=== PATIENT | female | born 1965 | race Caucasian/White ===

== ENCOUNTER 2020-04-11 09:15 | Inpatient (IN) | payer MEDICAID ==
[2020-04-11] VITALS (8 sets, daily range): BP systolic 111–169; BP diastolic 49–99
[~2020-04-11] VITALS: Ht 170.2 cm; Wt 105.8 kg
[2020-04-11] MEDS ORDERED: dexamethasone sod phosphate 10mg/ml inj IV STA (09:20)
[2020-04-11] MEDS ORDERED: diphenhydrAMINE 50 mg/ml inj IV ONE (09:20)
[2020-04-11] MEDS ORDERED: famotidine/PF 10 mg/ml inj IV ONE (09:20)
--- NOTE | 2020-04-11 09:33 | NUR ---
[facility] ([facility]) [phone]
[2020-04-11] MEDS ORDERED: TRANEXAMIC ACID 1 GM IN NACL,ISO-OS 100 ML IV ONE (09:40)
[2020-04-11] MEDS ORDERED: epiNEPHrine 1 mg/ml inj SQ ONE (09:50)
--- NOTE | 2020-04-11 09:50 | NUR ---
pt states swelling is getting worse in her throat. redness moving down neck. Dr. Herrmann udpated.
--- NOTE | 2020-04-11 10:06 | NUR ---
Pt states slight improvement of symptoms
--- NOTE | 2020-04-11 10:06 | NUR ---
Pt moved to bed 5
[2020-04-11] MEDS ORDERED: epiNEPHrine 1 mg/ml inj SQ PRN (10:20)
--- NOTE | 2020-04-11 10:50 | NUR ---
Pt states slight improvement of symptoms. Awaiting FFP. Will continue to monitor closely.
--- NOTE | 2020-04-11 11:17 | NUR ---
FFP initiated. Verified by 2 RNs.
--- NOTE | 2020-04-11 11:25 | NUR ---
swelling of tongue decreasing, redness around neck and upper chest beginning to decrease, pt states it is easier to breath. Will continue to monitor.
[2020-04-11] MEDS ORDERED: ketorolac trometh. 30mg/ml inj. IV ONE (13:15)
[2020-04-11] MEDS ORDERED: ketorolac tromethamine 15mg/ml inj. IV ONE (13:15)
[2020-04-11] MEDS ORDERED: acetaminophen 325mg tablet PO ONE (14:05)
[2020-04-11] MEDS ORDERED: LISI-600 PO (14:30)
[2020-04-11] MEDS ORDERED: METF500T PO (14:30)
[2020-04-11] MEDS ORDERED: SIMV10TA98 PO (14:30)
[2020-04-11] MEDS ORDERED: AMLO-94 PO (14:30)
[2020-04-11] MEDS ORDERED: LORA2TAB96 PO (14:30)
[2020-04-11] MEDS ORDERED: ipratropium/albuterol 3ml nebule NEB PRN (14:55)
[2020-04-11] MEDS ORDERED: magnesium 4gm in 100ml NS 100 ML IV PRN (14:55)
[2020-04-11] MEDS ORDERED: magnesium Cl slow-release 64mg tablet PO PRN (14:55)
[2020-04-11] MEDS ORDERED: niCARdipine I.V. 50 MG in normal saline 250ml IV soln 230 ML IV SCH (14:55)
[2020-04-11] MEDS ORDERED: acetaminophen 650mg rectal suppository RC PRN (14:55)
[2020-04-11] MEDS ORDERED: potassium Cl 20 mEq SR tablet PO PRN ×2 (14:55)
[2020-04-11] MEDS ORDERED: normal saline 1000ml 1,000 ML IV SCH (14:55)
[2020-04-11] MEDS ORDERED: magnesium 2GM in 50ml NS 50 ML IV PRN (14:55)
[2020-04-11] MEDS ORDERED: sodium phosphate inj. 15 MMOL in dextrose 5%-water 250 ML IV PRN (14:55)
[2020-04-11] MEDS ORDERED: Neutra Phos packet PO PRN (14:55)
[2020-04-11] MEDS ORDERED: sodium phosphate inj. 30 MMOL in dextrose 5%-water 250 ML IV PRN (14:55)
[2020-04-11] MEDS ORDERED: ondansetron/PF 4mg/2ml inj IV PRN (14:55)
[2020-04-11] MEDS ORDERED: AMLO10TA13 PO (14:58)
[2020-04-11] MEDS ORDERED: LORA-268 PO (14:58)
[2020-04-11] MEDS ORDERED: CYCL5TAB79 PO (14:58)
[2020-04-11] MEDS ORDERED: diphenhydrAMINE 50 mg/ml inj IV PRN (15:00)
[2020-04-11 15:24] LABS: BASOPHILS % (AUTO) 0.2 % (0-1); EOSINOPHILS % (AUTO) 0.1 % (0-6); HEMATOCRIT 40.5 % (35.0-45.0); HEMOGLOBIN 13.5 g/dl (12.0-16.0); LYMPHOCYTES # (AUTO) 0.6 X10'3 (1.1-4.8); LYMPHOCYTES % (AUTO) 5.4 % (21-51); MEAN CORPUSCULAR HEMOGLOBIN 27.7 PG (27.0-31.0); MEAN CORPUSCULAR HGB CONC 33.3 g/dL (33.0-36.5); MEAN CORPUSCULAR VOLUME 83.2 FL (78-98); MEAN PLATELET VOLUME 8.8 FL (7.4-10.4); MONOCYTES # (AUTO) 0.1 X10'3 (0-0.9); MONOCYTES % (AUTO) 0.5 % (2-12); NEUTROPHILS # (AUTO) 9.8 X10'3 (1.8-7.7); NEUTROPHILS % (AUTO) 93.8 % (42-75); PLATELET COUNT 249 X10'3 (140-440); RED BLOOD COUNT 4.87 X10'6 (4.20-5.60); RED CELL DISTRIBUTION WIDTH 13.4 % (11.5-14.5); WHITE BLOOD COUNT 10.5 X10'3 (4.5-11.0)
[2020-04-11 15:39] LABS: PARTIAL THROMBOPLASTIN TIME 24 SECONDS (22-32)
[2020-04-11 15:46] LABS: ALANINE AMINOTRANSFERASE 30 U/L (12-78); ALBUMIN 4.1 G/DL (3.4-5.0); ALBUMIN/GLOBULIN RATIO 1.1 (1.1-1.5); ALKALINE PHOSPHATASE 62 IU/L (46-116); ANION GAP 9 (8-16); ASPARTATE AMINO TRANSFERASE 20 U/L (10-37); BILIRUBIN,TOTAL 0.3 MG/DL (0.1-1.0); BLOOD UREA NITROGEN 16 MG/DL (7-18); BUN/CREATININE RATIO 21.3 (6.6-38.0); CALCIUM 9.2 MG/DL (8.5-10.1); CHLORIDE 103 MMOL/L (99-107); CREATININE 0.75 MG/DL (0.40-0.90); GLUCOSE 202 MG/DL (70-104); PHOSPHORUS 3.1 MG/DL (2.3-4.5); POTASSIUM 3.8 MMOL/L (3.5-5.1); SODIUM 140 MMOL/L (135-145); TOTAL CARBON DIOXIDE 27.9 MMOL/L (24-32); TOTAL PROTEIN 7.9 G/DL (6.4-8.2); eGFR 80 ML/MIN
--- NOTE | 2020-04-11 16:00 | NUR ---
received from er by brisa to room 2011. walked to bed. neuros intact- face flushed. no edema noted on face or tongue.
[2020-04-11] MEDS: niCARDipine-NS 40mg/200ml IVPB 200 ML IV SCH ×2 (16:56→21:39)
--- NOTE | 2020-04-11 17:00 | NUR ---
ns and cardene gtt started. small amts of ice chips, no difficulty in swallowing.
--- NOTE | 2020-04-11 17:45 | NUR ---
dr mckeon called to request home med flexeril for neck and back pain- still no food for now r/t concern for potential in difficulty swallowing. cardene increased to keep sbp less than 140
[2020-04-11] MEDS ORDERED: cyclobenzaprine 10mg tablet PO PRN (17:55)
[2020-04-11] MEDS: heparin, porcine 5000 units/ml vial SQ SCH (20:00)
[2020-04-11 20:05] LABS: ALANINE AMINOTRANSFERASE 26 U/L (12-78); ALBUMIN 4.1 G/DL (3.4-5.0); ALBUMIN/GLOBULIN RATIO 1.1 (1.1-1.5); ALKALINE PHOSPHATASE 64 IU/L (46-116); ANION GAP 9 (8-16); ASPARTATE AMINO TRANSFERASE 15 U/L (10-37); BILIRUBIN,TOTAL 0.3 MG/DL (0.1-1.0); BLOOD UREA NITROGEN 16 MG/DL (7-18); CALCIUM 9.6 MG/DL (8.5-10.1); CHLORIDE 104 MMOL/L (99-107); GLUCOSE 219 MG/DL (70-104); SODIUM 140 MMOL/L (135-145); TOTAL CARBON DIOXIDE 27.5 MMOL/L (24-32); eGFR 74 ML/MIN
[2020-04-11] MEDS ORDERED: mag hydrox/Alum hydrox/simeth 30ml oral suspension PO ONE (22:00)
[2020-04-11] MEDS: methylPREDNISolone sod succ 125mg/2ml vial IV SCH (22:38)
[2020-04-11] MEDS: famotidine/PF 10 mg/ml inj IV SCH (22:38)
[2020-04-11 23:01] LABS: CLARITY,URINE CLEAR (Clear); COLOR,URINE YELLOW (Yellow); GLUCOSE, URINE NEGATIVE (Neg); KETONES,URINE TRACE mg/dl (Neg); LEUKOCYTE ESTERASE ,URINE NEGATIVE (Neg); NITRITES, URINE NEGATIVE (Neg); OCCULT BLOOD,URINE TRACE-INTACT (Neg); PROTEIN,URINE NEGATIVE (Neg); UROBILINOGEN,URINE 0.2 E.U/dL (0.2-1.0)
[2020-04-11 23:09] LABS: UA COLLECTION TYPE NON-SPECIFIED
[2020-04-11 23:10] LABS: BACTERIA,URINE FEW /HPF (Neg); RBC,URINE 0-2 /HPF (0-2); SQUAMOUS EPITHELIAL CELL,UR FEW /LPF (FEW); WBC,URINE NONE SEEN /HPF (0-4)
[2020-04-12] VITALS (19 sets, daily range): BP systolic 113–151; BP diastolic 61–84
[2020-04-12] MEDS: methylPREDNISolone sod succ 125mg/2ml vial IV SCH ×2 (02:00→07:15)
[2020-04-12 06:30] LABS: BASOPHILS % (AUTO) 0.1 % (0-1); EOSINOPHILS % (AUTO) 0 % (0-6); HEMATOCRIT 37.9 % (35.0-45.0); HEMOGLOBIN 13.1 g/dl (12.0-16.0); LYMPHOCYTES # (AUTO) 0.9 X10'3 (1.1-4.8); LYMPHOCYTES % (AUTO) 9.3 % (21-51); MEAN CORPUSCULAR HEMOGLOBIN 28.5 PG (27.0-31.0); MEAN CORPUSCULAR HGB CONC 34.7 g/dL (33.0-36.5); MEAN PLATELET VOLUME 8.6 FL (7.4-10.4); MONOCYTES # (AUTO) 0.1 X10'3 (0-0.9); MONOCYTES % (AUTO) 0.5 % (2-12); NEUTROPHILS # (AUTO) 8.8 X10'3 (1.8-7.7); NEUTROPHILS % (AUTO) 90.1 % (42-75); PLATELET COUNT 217 X10'3 (140-440); RED BLOOD COUNT 4.61 X10'6 (4.20-5.60); RED CELL DISTRIBUTION WIDTH 13.7 % (11.5-14.5); WHITE BLOOD COUNT 9.8 X10'3 (4.5-11.0)
[2020-04-12] MEDS: niCARDipine-NS 40mg/200ml IVPB 200 ML IV SCH (06:54)
[2020-04-12 07:03] LABS: ALANINE AMINOTRANSFERASE 25 U/L (12-78); ALBUMIN 3.8 G/DL (3.4-5.0); ALKALINE PHOSPHATASE 58 IU/L (46-116); ANION GAP 10 (8-16); ASPARTATE AMINO TRANSFERASE 10 U/L (10-37); BILIRUBIN,TOTAL 0.2 MG/DL (0.1-1.0); BLOOD UREA NITROGEN 17 MG/DL (7-18); BUN/CREATININE RATIO 29.8 (6.6-38.0); CHLORIDE 104 MMOL/L (99-107); CREATININE 0.57 MG/DL (0.40-0.90); GLUCOSE 213 MG/DL (70-104); MAGNESIUM 2.3 MG/DL (1.5-2.4); PHOSPHORUS 3.2 MG/DL (2.3-4.5); POTASSIUM 3.6 MMOL/L (3.5-5.1); SODIUM 139 MMOL/L (135-145); TOTAL CARBON DIOXIDE 25.3 MMOL/L (24-32); TOTAL PROTEIN 7.6 G/DL (6.4-8.2); eGFR > 90 ML/MIN
[2020-04-12] MEDS: famotidine/PF 10 mg/ml inj IV SCH ×2 (07:15→20:00)
[2020-04-12] MEDS: acetaminophen 325mg tablet PO PRN (07:24)
[2020-04-12] MEDS: heparin, porcine 5000 units/ml vial SQ SCH ×2 (08:00→20:00)
[2020-04-12] MEDS ORDERED: pantoprazole 40 MG vial IV SCH (08:00)
[2020-04-12] MEDS: amLODIPine 5mg tablet PO SCH (10:47)
[2020-04-12] MEDS: labetalol 100mg tablet PO SCH ×2 (10:47→20:09)
[2020-04-12] MEDS ORDERED: LORazepam 0.5 MG tablet PO PRN (11:55)
[2020-04-12] MEDS: metFORMIN 500mg tablet PO SCH (12:44)
--- NOTE | 2020-04-12 14:35 | NUR ---
DM consult: Pt with A1c 7.6%, pending transfer to the floors. Pt would benefit from DM education once stable. Addendum: 04/12/20 at [address] Amended: Links added.
--- NOTE | 2020-04-12 18:00 | NUR ---
Patient arrived on unit from CICU at approximately 1730. Oriented to room. No complaints of pain or discomfort. Will continue to monitor.
--- NOTE | 2020-04-12 18:14 | NUR ---
SBAR report to hannah cabrera, emar reviewed, questions answered at [phone].
--- NOTE | 2020-04-12 18:36 | NUR ---
Patient in room CICU 2011. I have received report from Penny WOO and had the opportunity to ask questions and assume patient care.
[2020-04-12] MEDS: famotidine 20mg tablet PO SCH (20:00)
[2020-04-12] MEDS: methylPREDNISolone sod succ/PF 40mg inj. IV SCH (20:10)
[2020-04-12] MEDS ORDERED: insulin Lispro (HumaLOG) vial - multi-dose SQ ONE (22:35)
--- NOTE | 2020-04-12 22:40 | NUR ---
Spoke with provider land leasing information clerk about higher blood sugars for patient. No DM protocol ordered. The provider wants a one time dose of Humalog to be given tonight.
[2020-04-13 02:00] VITALS: BP 113/54
--- NOTE | 2020-04-13 06:30 | NUR ---
Problems reprioritized. Patient report given, questions answered & plan of care reviewed with Zeke WOO.
[2020-04-13 06:41] LABS: BASOPHILS % (AUTO) 0 % (0-1); EOSINOPHILS % (AUTO) 0 % (0-6); HEMATOCRIT 37.4 % (35.0-45.0); HEMOGLOBIN 12.5 g/dl (12.0-16.0); LYMPHOCYTES # (AUTO) 1.1 X10'3 (1.1-4.8); LYMPHOCYTES % (AUTO) 5.9 % (21-51); MEAN CORPUSCULAR HEMOGLOBIN 27.8 PG (27.0-31.0); MEAN CORPUSCULAR HGB CONC 33.4 g/dL (33.0-36.5); MEAN CORPUSCULAR VOLUME 83.3 FL (78-98); MONOCYTES # (AUTO) 0.6 X10'3 (0-0.9); NEUTROPHILS # (AUTO) 17.5 X10'3 (1.8-7.7); NEUTROPHILS % (AUTO) 91.1 % (42-75); PLATELET COUNT 232 X10'3 (140-440); RED BLOOD COUNT 4.49 X10'6 (4.20-5.60); RED CELL DISTRIBUTION WIDTH 13.9 % (11.5-14.5); WHITE BLOOD COUNT 19.2 X10'3 (4.5-11.0)
[2020-04-13 06:46] LABS: ALANINE AMINOTRANSFERASE 23 U/L (12-78); ALBUMIN 3.5 G/DL (3.4-5.0); ALKALINE PHOSPHATASE 57 IU/L (46-116); ANION GAP 9 (8-16); ASPARTATE AMINO TRANSFERASE 10 U/L (10-37); BILIRUBIN,TOTAL 0.1 MG/DL (0.1-1.0); BLOOD UREA NITROGEN 27 MG/DL (7-18); CHLORIDE 105 MMOL/L (99-107); CREATININE 0.75 MG/DL (0.40-0.90); GLUCOSE 256 MG/DL (70-104); MAGNESIUM 2.4 MG/DL (1.5-2.4); PHOSPHORUS 3.1 MG/DL (2.3-4.5); POTASSIUM 4.1 MMOL/L (3.5-5.1); SODIUM 139 MMOL/L (135-145); TOTAL CARBON DIOXIDE 24.7 MMOL/L (24-32); eGFR 80 ML/MIN
[2020-04-13 07:00] VITALS: BP 140/72
[2020-04-13 07:44] LABS: TOTAL CELLS COUNTED 100
[2020-04-13 07:45] LABS: PLATELET ESTIMATE NORMAL
[2020-04-13] MEDS: heparin, porcine 5000 units/ml vial SQ SCH ×2 (08:00→19:40)
[2020-04-13] MEDS: labetalol 100mg tablet PO SCH ×2 (08:12→19:45)
[2020-04-13] MEDS: famotidine 20mg tablet PO SCH ×2 (08:12→19:39)
[2020-04-13] MEDS: metFORMIN 500mg tablet PO SCH (08:12)
[2020-04-13] MEDS: amLODIPine 5mg tablet PO SCH (08:13)
[2020-04-13] MEDS: methylPREDNISolone sod succ/PF 40mg inj. IV SCH (08:13)
[2020-04-13] MEDS: famotidine/PF 10 mg/ml inj IV SCH ×2 (08:13→19:39)
--- NOTE | 2020-04-13 10:13 | NUR ---
Spoke to Dr. Marsh over the phone, informed her of the need for blood sugar of 241, need for epi pen upon discharge and oral airway. Stated to give 5 units of humulog one time dose and she would talk to her about the discharge plan.
[2020-04-13] MEDS ORDERED: insulin Lispro (HumaLOG) vial - multi-dose SQ ONE ×2 (10:20→13:00)
[2020-04-13] MEDS ORDERED: insulin regular, human 10 units/0.1 ml syringe SQ ONE (10:25)
[2020-04-13 11:00] VITALS: BP 142/72
[2020-04-13] MEDS ORDERED: FAMO20TA8 PO (11:35)
[2020-04-13] MEDS ORDERED: AMLO10TA13 PO (11:35)
[2020-04-13] MEDS ORDERED: EPIN0.1521 IM (11:35)
[2020-04-13] MEDS ORDERED: LABE100T5 PO (11:35)
[2020-04-13] MEDS: acetaminophen 325mg tablet PO PRN ×2 (13:36→22:56)
--- NOTE | 2020-04-13 13:55 | NUR ---
F/u: Written DM ed w/ [facility] contact information placed in pt chart. Addendum: 04/13/20 at [address] Amended: Links added.
[2020-04-13] MEDS ORDERED: bisacodyl 10mg suppository rectal RC PRN (14:55)
[2020-04-13 15:00] VITALS: BP 104/66
--- NOTE | 2020-04-13 18:37 | NUR ---
SBAR report given to catalina cabrera, emar reviewed, questions answered.
[2020-04-13 20:00] VITALS: BP 154/80
[2020-04-13] MEDS ORDERED: cyclobenzaprine 10mg tablet PO PRN (22:47)
[2020-04-14] VITALS: BP 153/79
[2020-04-14 06:00] VITALS: BP 153/79
--- NOTE | 2020-04-14 06:32 | NUR ---
Report given to deborah Ruiz.
--- NOTE | 2020-04-14 06:40 | NUR ---
Patient in room MED 313. I have received report from Estuardo WOO and had the opportunity to ask questions and assume patient care.
[2020-04-14 06:59] LABS: BASOPHILS % (AUTO) 0.1 % (0-1); EOSINOPHILS % (AUTO) 0.1 % (0-6); HEMATOCRIT 38.1 % (35.0-45.0); HEMOGLOBIN 12.8 g/dl (12.0-16.0); LYMPHOCYTES # (AUTO) 3.4 X10'3 (1.1-4.8); MEAN CORPUSCULAR HEMOGLOBIN 27.9 PG (27.0-31.0); MEAN CORPUSCULAR HGB CONC 33.6 g/dL (33.0-36.5); MEAN CORPUSCULAR VOLUME 83.1 FL (78-98); MEAN PLATELET VOLUME 8.7 FL (7.4-10.4); MONOCYTES # (AUTO) 0.6 X10'3 (0-0.9); MONOCYTES % (AUTO) 4.4 % (2-12); NEUTROPHILS # (AUTO) 9.6 X10'3 (1.8-7.7); NEUTROPHILS % (AUTO) 70.4 % (42-75); PLATELET COUNT 224 X10'3 (140-440); RED BLOOD COUNT 4.58 X10'6 (4.20-5.60); RED CELL DISTRIBUTION WIDTH 13.7 % (11.5-14.5); WHITE BLOOD COUNT 13.7 X10'3 (4.5-11.0)
[2020-04-14 07:24] LABS: ALANINE AMINOTRANSFERASE 24 U/L (12-78); ALBUMIN 3.4 G/DL (3.4-5.0); ALKALINE PHOSPHATASE 52 IU/L (46-116); ANION GAP 6 (8-16); ASPARTATE AMINO TRANSFERASE 9 U/L (10-37); BILIRUBIN,TOTAL 0.2 MG/DL (0.1-1.0); BLOOD UREA NITROGEN 18 MG/DL (7-18); BUN/CREATININE RATIO 26.9 (6.6-38.0); CALCIUM 8.5 MG/DL (8.5-10.1); CHLORIDE 105 MMOL/L (99-107); CREATININE 0.67 MG/DL (0.40-0.90); GLUCOSE 186 MG/DL (70-104); MAGNESIUM 2.2 MG/DL (1.5-2.4); PHOSPHORUS 2.5 MG/DL (2.3-4.5); POTASSIUM 3.5 MMOL/L (3.5-5.1); SODIUM 141 MMOL/L (135-145); TOTAL CARBON DIOXIDE 30.2 MMOL/L (24-32); TOTAL PROTEIN 6.8 G/DL (6.4-8.2); eGFR > 90 ML/MIN
[2020-04-14] MEDS: metFORMIN 500mg tablet PO SCH (10:20)
[2020-04-14] MEDS: labetalol 100mg tablet PO SCH (10:22)
[2020-04-14 10:23] VITALS: BP_SYST 157
[2020-04-14] MEDS: amLODIPine 5mg tablet PO SCH (10:23)
[2020-04-14] MEDS: famotidine 20mg tablet PO SCH (10:24)
--- NOTE | 2020-04-14 12:53 | NUR ---
Patient discharged home at 1253. Patient reviewed discharge packet prior to singing. New RX called in to [facility] in [place], all belongings sent with patient. Tele d/c'd , PIV removed with catheter intact. Patient walked down by staff and left via private vehicle.
== END 2020-04-14 12:53 | disposition home or self-care (01) | DRG 811 ==
LOC: ER 09:16 → INTOOBSV 14:52 → ED HOLD 14:52 → OBSVTOIN 14:52 → ICU 2S 15:55 → CICU 2S 16:26 → MED 3N 04-12 19:35
PROVIDERS: ADMIT Internal Medicine Critical Care Medicine; ATTEND Internal Medicine Critical Care Medicine
PROC: 30233K1 Transfusion of Nonautologous Frozen Plasma into Peripheral Vein, Percutaneous Approach (ICD-10-PCS; principal; 2020-04-11)
DX: T78.3XXA Angioneurotic edema, initial encounter (principal); E11.9 Type 2 diabetes mellitus without complications; I10 Essential (primary) hypertension; Z90.710 Acquired absence of both cervix and uterus; Z88.8 Allergy status to other drugs, medicaments and biological substances; Z79.899 Other long term (current) drug therapy
CPT/HCPCS: 36415; 36430; 80053; 81001; 82948; 83036; 83735; 83880; 84100; 84145; 84443; 85007; 85025; 85610; 85730; 86885; 86900; 86901; 87081; 94760; 96365; 96375; 97161; 97530; 99291; C9113; G0378; J0171; J1100; J1200; J1815; J2920; J2930; J3490; J7030; P9059

== ENCOUNTER 2020-05-30 06:38 | Day surgery (SDC) | payer MEDICAID ==
[2020-05-26 10:20] LABS: BASOPHILS % (AUTO) 0.7 % (0-1); EOSINOPHILS # (AUTO) 0.1 X10'3 (0-0.9); EOSINOPHILS % (AUTO) 2.3 % (0-6); LYMPHOCYTES # (AUTO) 1.8 X10'3 (1.1-4.8); LYMPHOCYTES % (AUTO) 28.1 % (21-51); MEAN CORPUSCULAR HEMOGLOBIN 27.3 PG (27.0-31.0); MEAN CORPUSCULAR HGB CONC 32.9 g/dL (33.0-36.5); MEAN CORPUSCULAR VOLUME 83.1 FL (78-98); MEAN PLATELET VOLUME 8.2 FL (7.4-10.4); MONOCYTES # (AUTO) 0.4 X10'3 (0-0.9); MONOCYTES % (AUTO) 6.8 % (2-12); NEUTROPHILS # (AUTO) 3.9 X10'3 (1.8-7.7); NEUTROPHILS % (AUTO) 62.1 % (42-75); PRE OP HEMATOCRIT 40.4 % (35.0-45.0); PRE OP HEMOGLOBIN 13.3 g/dL (12.0-16.0); PRE OP PLATELET COUNT 245 X10'3 (140-440); RED BLOOD COUNT 4.86 X10'6 (4.20-5.60); RED CELL DISTRIBUTION WIDTH 13.8 % (11.5-14.5)
[2020-05-26 10:29] LABS: ALBUMIN 3.8 G/DL (3.4-5.0); ALKALINE PHOSPHATASE 71 IU/L (46-116); BLOOD UREA NITROGEN 14 MG/DL (7-18); BUN/CREATININE RATIO 21.2 (6.6-38.0); CALCIUM 9.6 MG/DL (8.5-10.1); CHLORIDE 105 MMOL/L (99-107); CREATININE 0.66 MG/DL (0.40-0.90); PRE OP ALT 39 U/L (30-65); PRE OP ANION GAP 6 (8-16); PRE OP AST 18 U/L (10-37); PRE OP BILIRUB, TOTAL 0.3 MG/DL (0.0-1.0); PRE OP POTASSIUM 3.5 MMOL/L (3.4-5.1); PRE OP SODIUM 145 MMOL/L (135-145); TOTAL CARBON DIOXIDE 33.9 MMOL/L (24-32); TOTAL PROTEIN 7.5 G/DL (6.4-8.2); eGFR > 90 ML/MIN
[2020-05-26 10:31] LABS: PRE OP GLUCOSE 212 MG/DL (70-104)
[2020-05-30] VITALS (9 sets, daily range): BP systolic 135–162; BP diastolic 84–102
[~2020-05-30] VITALS: Ht 170.2 cm; Wt 113.4 kg
[~2020-05-30 06:38] MED LIST: ACET-1008 PO; AMLO2.5T2 PO; ASPI-1094 PO; CYCL5TAB79 PO; DOCUMENT DATE & TIME OF BETA-BLOCKER PO ONE; EPIN0.1521 IM; LABE100T5 PO; LORA-268 PO; METF500T PO; SIMV10TA98 PO; ceFAZolin 2gm in dextrose, iso 50 ML IV ONE; famotidine 20mg tablet PO ONE; ringers solution, lacted 1,000 ML IV SCH
[2020-05-30] MEDS ORDERED: BUPIVAcaine/PF 2.5mg/ml (0.25%) 10ml vial ONE (06:51)
[2020-05-30] MEDS ORDERED: LIDOcaine 0.5% (5mg/ml) 50ml vial ONE (07:37)
[2020-05-30] MEDS ORDERED: insulin regular, human 10 units/0.1 ml syringe SQ ONE (08:15)
[2020-05-30] MEDS ORDERED: sevoflurane 250ml liquid IH ONE (08:28)
[2020-05-30] MEDS ORDERED: fentaNYL/PF 50MCG/1 ML 2ML syringe ONE (08:38)
[2020-05-30] MEDS ORDERED: midazolam 1 mg/ML 2ml injection ONE (08:53)
[2020-05-30] MEDS ORDERED: morphine 2 MG/ML inj. syringe IV PRN (09:15)
[2020-05-30] MEDS ORDERED: acetaminophen 1,000mg/100ml IV 100 ML IV PRN (09:15)
[2020-05-30] MEDS ORDERED: labetalol 20mg/4ml (5mg/ml) syringe IV PRN (09:15)
[2020-05-30] MEDS ORDERED: hydrALAZINE 20mg/ml inj. IV PRN (09:15)
[2020-05-30] MEDS ORDERED: ondansetron/PF 4mg/2ml inj IV PRN (09:15)
[2020-05-30] MEDS ORDERED: morphine 4 MG/ML inj SYRINge IV PRN (09:15)
[2020-05-30] MEDS ORDERED: ringers solution, lacted 1,000 ML IV SCH (09:15)
[2020-05-30] MEDS ORDERED: HYDROmorphone/PF 0.2 MG/ML SYRINGE IV PRN ×2 (09:15)
[2020-05-30] MEDS ORDERED: meperidine/PF 25mg/ml syringe IV PRN (09:15)
[2020-05-30] MEDS ORDERED: LIDOcaine 1%/PF 5ML 10 MG/ML VIAL ONE (09:36)
[2020-05-30] MEDS ORDERED: ondansetron/PF 4mg/2ml inj ONE (09:36)
[2020-05-30] MEDS ORDERED: propofol inj 20 ML IV ONE ×3 (09:36)
[2020-05-30] MEDS ORDERED: famotidine/PF 10 mg/ml inj IV ONE (09:37)
[2020-05-30] MEDS ORDERED: ROPIVAcaine 0.5% (5mg/ml) 30ml vial ONE (10:11)
[2020-05-30] MEDS ORDERED: morphine 10mg/ml inj. ONE (10:11)
--- NOTE | 2020-05-30 10:20 | NUR ---
Received from OR via [facility] , accompanied by Anesthesiologist DR. MARVIN and report given by Anesthesiolgist. PATIENT STABLE A&OX4 PATIENT DENIES ANY PAIN. BLOOD SUGAR 192 DR. MARVIN INFORMED NO ORDERS GIVEN. DRESSING INTACT NO DRAINAGE NOTED. Addendum: 05/30/20 at 1055 by Adele Gamez RN Amended: Links added.
--- NOTE | 2020-05-30 11:50 | NUR ---
PATIENT ABLE TO AMBULATE, VOIDED X1. PATIENT GIVEN WRITTEN AND VERBAL DISCHARGE INSTRUCTIONS PATIENT GAVE A VERBAL UNDERSTANDING OF INSTRUCTIONS GIVEN. PATIENT DC VIA WHEELCHAIR TO PRIVATE VEHICLE WITHOUT INCIDENT AND WITH PERSONAL BELONGINGS. Addendum: 05/30/20 at 1217 by Adele Gamez RN Amended: Links added.
== END 2020-05-30 11:50 | disposition home or self-care (01) ==
LOC: PAS 06:38 → EDUNIT# 11:00 → PAS 11:50
PROVIDERS: ATTEND Orthopaedic Surgery Hand Surgery
DX: M18.12 Unilateral primary osteoarthritis of first carpometacarpal joint, left hand (principal); E11.9 Type 2 diabetes mellitus without complications; I10 Essential (primary) hypertension; G47.30 Sleep apnea, unspecified; E78.00 Pure hypercholesterolemia, unspecified; E66.9 Obesity, unspecified; Z68.38 Body mass index [BMI] 38.0-38.9, adult; Z88.8 Allergy status to other drugs, medicaments and biological substances; Z20.822 Contact with and (suspected) exposure to COVID-19; Z90.710 Acquired absence of both cervix and uterus; Z98.890 Other specified postprocedural states; Z79.899 Other long term (current) drug therapy; Z79.84 Long term (current) use of oral hypoglycemic drugs; Z72.89 Other problems related to lifestyle
CPT/HCPCS: 25310; 25447; 36415; 80053; 82948; 85025; 93005; A6222; J0131; J1170; J1815; J2001; J2250; J2270; J2405; J2704; J3010; J3490; J7120; U0003; A4215; A4618; A6449; J2795